=== PATIENT | female | born 1985 | race African-American/Black ===

== ENCOUNTER 2018-04-05 13:27 | Emergency (ER) | payer OTHER ==
[~2018-04-05] VITALS: Ht 167.6 cm; Wt 72.6 kg
== END 2018-04-05 13:54 | disposition left against medical advice (07) ==
LOC: ER 13:35
DX: Z53.21 Procedure and treatment not carried out due to patient leaving prior to being seen by health care provider (principal)
CPT/HCPCS: A4663

== ENCOUNTER 2018-04-05 17:02 | Emergency (ER) | payer OTHER ==
[~2018-04-05] VITALS: Ht 170.2 cm; Wt 72.6 kg
--- NOTE | 2018-04-05 17:35 | NUR ---
Patient discharged to home in stable conditon. Written and verbal after care instructions given. Patient verbalizes understanding of instructions.
== END 2018-04-05 17:35 | disposition home or self-care (01) ==
LOC: ER 17:02
DX: H66.92 Otitis media, unspecified, left ear (principal); Z88.8 Allergy status to other drugs, medicaments and biological substances
CPT/HCPCS: A4663

== ENCOUNTER 2020-05-26 14:38 | Emergency (ER) | payer OTHER ==
[~2020-05-26] VITALS: Ht 167.6 cm; Wt 79.4 kg
--- NOTE | 2020-05-26 15:36 | NUR ---
Pt resting in [place] and talking on cell phone, NAD noted, pending MSE.
--- NOTE | 2020-05-26 16:37 | NUR ---
Patient discharged to home in stable condition. Written and verbal after care instructions given. Patient verbalizes understanding of instructions. Stressed follow up or return to ER for worsening s/s.
== END 2020-05-26 16:38 | disposition home or self-care (01) ==
LOC: ER 14:38
DX: R22.9 Localized swelling, mass and lump, unspecified (principal); Z87.828 Personal history of other (healed) physical injury and trauma; G43.909 Migraine, unspecified, not intractable, without status migrainosus
CPT/HCPCS: 73140; A4663

== ENCOUNTER 2021-06-10 15:20 | Emergency (ER) | payer OTHER ==
[~2021-06-10] VITALS: Ht 172.7 cm; Wt 81.6 kg
[2021-06-10] MEDS ORDERED: AZIT250T PO (15:42)
[2021-06-10] MEDS ORDERED: FLUC150T PO (15:47)
--- NOTE | 2021-06-10 16:12 | NUR ---
PT WAS EVALUATED BY DR OLSON. PT WAS D/C'd TO HOME . D/C INSTRUCTIONS GIVEN TO THE PT BY DR OLSON.
[2021-06-10 16:13] VITALS: BP 139/88
== END 2021-06-10 16:14 | disposition home or self-care (01) ==
LOC: ER 15:24
DX: J32.9 Chronic sinusitis, unspecified (principal); Z20.822 Contact with and (suspected) exposure to COVID-19; R03.0 Elevated blood-pressure reading, without diagnosis of hypertension
CPT/HCPCS: A4663

== ENCOUNTER 2022-11-19 21:29 | Emergency (ER) | payer OTHER ==
[~2022-11-19] VITALS: Ht 167.6 cm; Wt 77.1 kg
[~2022-11-19 21:29] MED LIST: AZIT250T PO; FLUC150T PO
[2022-11-19 22:22] VITALS: BP 141/82; O2SAT 99
== END 2022-11-19 22:22 | disposition home or self-care (01) ==
LOC: ER 21:32
DX: H61.21 Impacted cerumen, right ear (principal); G43.909 Migraine, unspecified, not intractable, without status migrainosus; Z88.8 Allergy status to other drugs, medicaments and biological substances; Z79.2 Long term (current) use of antibiotics; Z79.899 Other long term (current) drug therapy
CPT/HCPCS: A4663